=== PATIENT | female | born 1995 | race Two or more races ===

== ENCOUNTER 2017-07-06 14:34 | Emergency (ER) | payer MEDICAID ==
[2017-07-06 14:54] VITALS: BP 124/84
--- NOTE | 2017-07-06 16:35 | ED Physician Documentation ---
PD HPI SKIN - Stated complaint Stated Complaint: LUMP ON NECK - Chief complaint Chief Complaint: Wound - History obtained from History obtained from: Patient - History of Present Illness Timing - onset: Other (She had a sore throat yesterday, especially on the right , now gone. No associated fevers. She noted yesterday some tender lumps on the right side of the neck and left posterior neck. No other adenopathy throughout the body, no night sweats or weight loss.) Review of Systems Constitutional: denies: Fever, Chills, Myalgias, Fatigue, Weight Loss Eyes: denies: Loss of vision Ears: denies: Ear pain Nose: reports: Rhinorrhea / runny nose. denies: Congestion Throat: reports: Sore throat Cardiac: denies: Chest pain / pressure, Palpitations PD PAST MEDICAL HISTORY - Past Surgical History Past Surgical History: No - Present Medications Home Medications: Ambulatory Orders Medication Instructions Recorded Confirmed Amox/Clav 875/125 [Augmentin] 1 each PO Q12H #20 tablet 07/06/17 - Allergies Allergies/Adverse Reactions: Allergies Allergy/AdvReac Type Severity Reaction Status Date / Time No Known Drug Allergies Allergy Verified 09/10/14 15:44 - Social History Does the pt smoke?: No Smoking Status: Never smoker Does the pt drink ETOH?: No Does the pt have substance abuse?: No - Immunizations Immunizations are current?: Yes PD ED PE NORMAL - Vitals Vital signs reviewed: Yes - General General: Alert and oriented X 3, No acute distress - HEENT HEENT: Other ([place] but fairly small lymphadenopathy especially right anterior chain and left posterior chain, the tonsils are slightly red without exudates. TMs are normal.) - Neuro Neuro: Alert and oriented X 3, Normal speech - Psych Psych: Normal mood, Normal affect Results - Vitals Vitals: Vital Signs - 24 hr 07/06/17 14:50 Temperature 36.6 C Heart Rate 87 Respiratory 16 Rate Blood Pressure 124/84 H O2 Saturation 99 Oxygen O2 Source Room air Departure - Departure Disposition: 01 Home, Self Care Clinical Impression: Lymphadenitis Condition: Good Record reviewed to determine appropriate education?: Yes Instructions: ED Cervical Adenitis Abx Tx Prescriptions: Amox/Clav 875/125 [Augmentin] 1 each PO Q12H #20 tablet Comments: If the lumps, "lymph nodes," do not go away within 2-3 weeks, follow-up for ear nose and throat evaluation, the closest is in [place].Call [phone] to schedule an appointment.
== END 2017-07-06 16:36 | disposition home or self-care (01) ==
LOC: ED 14:34
DX: I88.9 Nonspecific lymphadenitis, unspecified (principal)
CPT/HCPCS: 99283

== ENCOUNTER 2017-10-25 20:49 | Outpatient (CLI) | payer MEDICAID | END 2017-10-25 20:50 | disposition EMS.NT | LOC: EMS 20:49 | PROVIDERS: ATTEND Surgery | DX: F41.9 Anxiety disorder, unspecified (principal) ==

== ENCOUNTER 2019-03-31 03:20 | Outpatient (CLI) | payer MEDICAID | END 2019-03-31 03:21 | disposition critical access hospital (66) | LOC: EMS 03:20 | PROVIDERS: ATTEND Surgery | DX: R00.0 Tachycardia, unspecified (principal) | CPT/HCPCS: A0425; A0427; A0999 ==

== ENCOUNTER 2019-03-31 03:36 | Emergency (ER) | payer MEDICAID ==
--- NOTE | 2019-03-31 03:52 | ED Physician Documentation ---
History of Present Illness - Stated complaint Stated Complaint: RAPID HEART RATE - Chief complaint Chief Complaint: Cardiac - History obtained from History obtained from: Patient, EMS - History of Present Illness Timing: Today, How many minutes ago (approximately 30-45 minutes [employer]) Pain level max: 0 Pain level now: 0 Improved by: mild improvement after adenosine 12mg given by medics (no response after initial dose of 6 mg) Worsened by: no apparent exacerbating factors - Additonal information Additional information: c/o sudden onset rapid palpitations that woke her from sleep approximately 30-60 minutes [employer]. similar, milder symptoms in the past that patient says were suspected to be panic/anxiety related, but has not had symptoms wake her from sleep until tonight. pulse was as high as 140 during medic evaluation and transport, no response with 6mg IV adenosine but pulse decreased to 100s after 12mg adenosine Review of Systems Cardiac: reports: Palpitations. denies: Chest pain / pressure, Pedal edema, Calf pain Respiratory: reports: Reviewed and negative GI: reports: Reviewed and negative PD PAST MEDICAL HISTORY - Past Medical History Past Medical History: No - Past Surgical History Past Surgical History: No - Present Medications Home Medications: Ambulatory Orders Medication Instructions Recorded Confirmed Amox/Clav 875/125 [Augmentin] 1 each PO Q12H #20 tablet 07/06/17 LORazepam [Lorazepam] 0.5 - 1 mg PO BID PRN #20 tablet 03/31/19 - Allergies Allergies/Adverse Reactions: Allergies Allergy/AdvReac Type Severity Reaction Status Date / Time No Known Drug Allergies Allergy Verified 03/31/19 03:42 - Social History Does the pt smoke?: No Smoking Status: Never smoker Does the pt drink ETOH?: No Does the pt have substance abuse?: No - Immunizations Immunizations are current?: Yes PD ED PE NORMAL - Vitals Vital signs reviewed: Yes - General General: Alert and oriented X 3, Well developed/nourished, Other (appears mildly anxious) - HEENT HEENT: PERRL, EOMI, Moist mucous membranes - Neck Neck: Thyroid normal - Cardiac Cardiac: No murmur - Respiratory Respiratory: No respiratory distress, Clear bilaterally - Abdomen Abdomen: Soft, Non tender - Derm Derm: Normal color, Warm and dry - Extremities Extremities: No edema PD ED PE EXPANDED - Cardiac Cardiac: Tachy, Regular Rhythm Results - Vitals Vitals: Vital Signs - 24 hr 03/31/19 03/31/19 03/31/19 03:37 03:42 04:02 Temperature 36.5 C Heart Rate 124 H 129 H 115 H Respiratory 18 26 H 26 H Rate Blood Pressure 139/102 H 131/79 H 133/84 H O2 Saturation 100 100 100 03/31/19 03/31/19 03/31/19 04:34 05:22 06:02 Temperature Heart Rate 109 H 106 H 111 H Respiratory 17 21 16 Rate Blood Pressure 131/78 H 115/74 113/83 H O2 Saturation 100 98 98 Oxygen O2 Source Room air - EKG (time done) No standard instances Rate: Rate (enter#) (120), Tachy Rhythm: Sinus tachycardia [place]: Normal Intervals: Normal ND QRS: Normal Ischemia: Normal ST segments - Labs Labs: Laboratory Tests 03/31/19 03/31/19 03/31/19 04:00 04:00 04:00 WBC 7.1 RBC 3.93 L Hgb 12.0 Hct 35.4 L MCV 90.1 MCH 30.5 MCHC 33.9 RDW 11.9 L Plt Count 194 MPV 10.3 Neut # (Auto) 4.1 Lymph # (Auto) 2.4 [place] # (Auto) 0.5 Eos # (Auto) 0.1 Baso # (Auto) 0.0 Absolute Nucleated RBC 0.00 Nucleated RBC % 0.0 D-Dimer Sodium 138 Potassium 2.8 L Chloride 105 Carbon Dioxide 18 L Anion Gap 15.0 H BUN 11 Creatinine 0.6 Estimated GFR (MDRD) 126 Glucose 122 H Calcium 8.8 TSH 2.42 Urine Color Urine Clarity Urine pH Ur Specific [place] Urine Protein Urine Glucose (UA) Urine Ketones Urine Occult Blood Urine Nitrite Urine Bilirubin Urine Urobilinogen Ur Leukocyte Esterase Ur Microscopic Review Urine Culture Comments Urine HCG, Qual 03/31/19 03/31/19 04:00 04:55 WBC RBC Hgb Hct MCV MCH MCHC RDW Plt Count MPV Neut # (Auto) Lymph # (Auto) [place] # (Auto) Eos # (Auto) Baso # (Auto) Absolute Nucleated RBC Nucleated RBC % D-Dimer 359.0 H Sodium Potassium Chloride Carbon Dioxide Anion Gap BUN Creatinine Estimated GFR (MDRD) Glucose Calcium TSH Urine Color YELLOW Urine Clarity CLEAR Urine pH 6.0 Ur Specific [place] 1.015 Urine Protein NEGATIVE Urine Glucose (UA) NEGATIVE Urine Ketones 15 H Urine Occult Blood NEGATIVE Urine Nitrite NEGATIVE Urine Bilirubin NEGATIVE Urine Urobilinogen 0.2 (NORMAL) Ur Leukocyte Esterase NEGATIVE Ur Microscopic Review NOT INDICATED Urine Culture Comments NOT INDICATED Urine HCG, Qual NEGATIVE - Rads (name of study) chest xray Radiology: Prelim report reviewed, See rad report PD MEDICAL DECISION MAKING - ED course Complexity details: reviewed results, re-evaluated patient, considered differential, d/w patient, d/w family ED course: heart rate gradually improved (less tachycardia) during ED stay during which she received 2 liters IV NS and lorazepam 1mg followed by 0.5 mg. tests results significant for hypokalemia and CO2 18; this is suspected to be due to anxiety- related hyperventilation causing respiratory alkalosis and concomitant intracellular potassium shifting. given PO potassium. she is in NAD at time of discharge and is comfortable with plan of discharge home, return if worse, and follow up with PCP Departure - Departure Disposition: 01 Home, Self Care Clinical Impression: Palpitations, Tachycardia Condition: Good Health Concerns: palpitations, tachycardia (fast heart rate) Plan of Treatment: follow up with PCP (primary care provider), return if worse, anti-anxiety medication as prescribed as needed for symptoms Care Goals: symptom control Assessment: see diagnosis Instructions: ED Palpitations Prescriptions: LORazepam [Lorazepam] 0.5 - 1 mg PO BID PRN #20 tablet PRN Reason: Anxiety Discharge Date/Time: 03/31/19 06:08
[2019-03-31] MEDS ORDERED: LORazepam 2 MG/ML VIAL IVP STA ×2 (03:53→04:45)
[2019-03-31] MEDS ORDERED: SODIUM CHLORIDE 0.9% 1,000 ML IV STA ×2 (03:53→05:05)
[2019-03-31 04:06] LABS: BASOPHILS % (AUTO) 0.3 %; EOSINOPHILS # (AUTO) 0.1 10^3/uL (0.0-0.7); EOSINOPHILS % (AUTO) 1.3 %; LYMPHOCYTES # (AUTO) 2.4 10^3/uL (1.5-3.5); LYMPHOCYTES % (AUTO) 33.5 %; MEAN CORPUSCULAR HEMOGLOBIN 30.5 pg (27.0-31.0); MEAN CORPUSCULAR HGB CONC 33.9 g/dL (32.0-36.0); MEAN CORPUSCULAR VOLUME 90.1 fL (81.0-99.0); MEAN PLATELET VOLUME 10.3 fL (7.9-10.8); MONOCYTES # (AUTO) 0.5 10^3/uL (0.0-1.0); MONOCYTES % (AUTO) 6.4 %; NEUTROPHILS # (AUTO) 4.1 10^3/uL (1.5-6.6); NEUTROPHILS % (AUTO) 58.2 %; PLT - PLATELET COUNT 194 10^3/uL (130-450); RED BLOOD COUNT 3.93 10^6/uL (4.20-5.40); RED CELL DISTRIBUTION WIDTH 11.9 % (12.0-15.0); WHITE BLOOD COUNT 7.1 x10^3/uL (4.8-10.8)
[2019-03-31 04:16] LABS: CALCIUM 8.8 mg/dL (8.5-10.3); CREATININE 0.6 mg/dL (0.4-1.0)
--- NOTE | 2019-03-31 04:23 | XRAY Report ---
Reason: palpitations, tachycardia Procedure Date: 03/31/2019 Accession Number: [id number] / [id number] Procedure: XR - Chest 2 View X-Ray CPT Code: 35974 FULL RESULT: EXAM: CHEST RADIOGRAPHY EXAM DATE: 03/31/2019 04:15 AM. CLINICAL HISTORY: Palpitations, tachycardia. COMPARISON: None. TECHNIQUE: 2 views. FINDINGS: Lungs/Pleura: No focal opacities evident. No pleural effusion. No pneumothorax. Normal volumes. Mediastinum: Heart and mediastinal contours are unremarkable. Other: None. IMPRESSION: Normal 2-view chest radiography. [facility]
[2019-03-31] MEDS ORDERED: POTASS CIT/CITRIC ACID ORAL 1 EACH PACKET PO STA (04:35)
[2019-03-31] MEDS ORDERED: POTASSIUM BICARB 25 MEQ TABLET PO ONE (04:36)
[2019-03-31 04:58] LABS: BILIRUBIN,URINE NEGATIVE (NEGATIVE); GLUCOSE, URINE (UA) NEGATIVE (NEGATIVE); KETONES,URINE (UA) 15 mg/dL (NEGATIVE); LEUKOCYTE ESTERASE, URINE NEGATIVE (NEGATIVE); NITRITE,URINE NEGATIVE (NEGATIVE); OCCULT BLOOD,URINE NEGATIVE (NEGATIVE); PROTEIN,URINE NEGATIVE (NEGATIVE); UROBILINOGEN,URINE 0.2 (NORMAL) E.U./dL (NORMAL)
[2019-03-31 05:00] LABS: CLARITY,URINE CLEAR (CLEAR); HCG UR QUAL NEGATIVE
[2019-03-31] MEDS ORDERED: ONDANSETRON 4 MG/2 ML VIAL IVP STA (05:05)
[2019-03-31 06:02] VITALS: BP 113/83
== END 2019-03-31 06:08 | disposition home or self-care (01) ==
LOC: EDUNIT# → ED 03:36
DX: R00.2 Palpitations (principal); R00.0 Tachycardia, unspecified
CPT/HCPCS: 36415; 71046; 80048; 81003; 81025; 84443; 85025; 85379; 93005; 96361; 96374; 96375; 96376; 99283; 99284; A9270; J2060; 81001; 87086